=== PATIENT | male | born 2005 | race African-American/Black ===

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

== ENCOUNTER 2023-04-16 23:02 | Emergency (ER) | payer SELFPAY ==
[2023-04-16 23:09] VITALS: BP 121/82; PULSE 80; TEMP 98.5; BMI 25.8
[2023-04-16 23:34] LABS: HEMATOCRIT 40.7 % (35.4-49); HEMOGLOBIN 13.2 G/dL (11.7-16.9); MCH 24.4 pg (25.7-33.7); MCHC 32.4 g/dl (32.0-35.9); MEAN CELL VOLUME 75.4 fl (80-96); MEAN PLT VOLUME 8.6 fl (7.5-11.1); PLATELET COUNT 188.3 10^3/uL (134-434); RDW 15.3 % (11.9-15.9); WHITE BLOOD COUNT 6.5 10^3/uL (4.0-10.8)
[2023-04-16 23:46] LABS: ALBUMIN 4.6 g/dl (3.4-5.0); BILIRUBIN,TOTAL 0.4 mg/dl (0.2-1); CALCIUM 9.4 mg/dl (8.5-10.1); CREATININE 1.1 mg/dl (0.6-1.3); POTASSIUM 3.9 mmol/L (3.5-5.1); TOT PROT 6.9 g/dl (6.4-8.2)
[2023-04-16 23:56] VITALS: RESP 18
== END 2023-04-17 01:03 | disposition home or self-care (01) ==
LOC: FER 23:02
DX: R55 Syncope and collapse (principal); R11.0 Nausea; R61 Generalized hyperhidrosis
CPT/HCPCS: 36415; 80053; 82550; 82553; 84484; 85027; 93005; 99284-25

== ENCOUNTER 2023-06-24 17:16 | Emergency (ER) | payer OTHER ==
[2023-06-24 17:31] VITALS: BP 132/75; PULSE 69; RESP 15; TEMP 99.1; BMI 25.8
[2023-06-24] MEDS ORDERED: IBUPROFEN 600 MG TABLET (FP) PO ONE (17:42)
[2023-06-24] MEDS: IBUPROFEN 600 MG TABLET (FP) PO ONE (17:44)
== END 2023-06-24 18:40 | disposition home or self-care (01) ==
LOC: FER 17:16
DX: M25.561 Pain in right knee (principal); X50.1XXA Overexertion from prolonged static or awkward postures, initial encounter; Y93.67 Activity, basketball
CPT/HCPCS: 73562-TC-RT-FY; 99283-25

== ENCOUNTER 2023-08-13 04:16 | Emergency (ER) | payer OTHER ==
[2023-08-13 04:24] VITALS: RESP 18; BMI 24.3
[2023-08-13] MEDS ORDERED: ACETAMINOPHEN INJECTION 100 ML IVPB ONE (05:11)
[2023-08-13] MEDS: ACETAMINOPHEN 1000 MG/100 ML BAG IVPB ONE (05:22)
[2023-08-13] MEDS: SODIUM CHLORIDE 1,000 ML IV STA ×3 (05:22→07:30)
[2023-08-13 06:46] LABS: BASO % 0.4 % (0-2.0); CALCIUM 8.8 mg/dL (8.5-10.1); EOS % 0.7 % (0-4.5); HEMATOCRIT 40.6 % (35.4-49); HEMOGLOBIN 13.4 GM/dL (11.7-16.9); LYMPH % 10.8 % (8-40); MCH 24.7 pg (25.7-33.7); MEAN CELL VOLUME 74.7 fl (80-96); MEAN PLT VOLUME 8.6 fl (7.5-11.1); MONO % 19.7 % (3.8-10.2); NEUT % 68.4 % (42.8-82.8); PLATELET COUNT 178 10^3/uL (134-434); POTASSIUM 4.1 mmol/L (3.5-5.1); RBC 5.44 M/mm3 (4.00-5.60); RDW 13.5 % (11.9-15.9); WHITE BLOOD COUNT 2.5 K/mm3 (4.0-10.0)
[2023-08-13 06:47] LABS: BLOOD UREA NITROGEN 8.7 mg/dL (7-18)
[2023-08-13 06:50] LABS: CREATININE 1.4 mg/dL (0.55-1.3)
[2023-08-13 06:52] LABS: BILIRUBIN,TOTAL 0.6 mg/dL (0.2-1); TOT PROT 7.2 g/dl (6.4-8.2)
[2023-08-13] MEDS ORDERED: KETOROLAC TROMETHAMINE 15 MG/ML VIAL ONE (06:52)
[2023-08-13 06:55] VITALS: BP 107/57; PULSE 92; TEMP 100.7
[2023-08-13] MEDS: KETOROLAC TROMETHAMINE 30 MG/1 ML VIAL IVPUSH ONE (07:22)
== END 2023-08-13 11:21 | disposition home or self-care (01) ==
LOC: FER 04:16
PROC: 3E033NZ Introduction of Analgesics, Hypnotics, Sedatives into Peripheral Vein, Percutaneous Approach (ICD-10-PCS; principal; 2023-08-13)
PROC: 3E033GC Introduction of Other Therapeutic Substance into Peripheral Vein, Percutaneous Approach (ICD-10-PCS; 2023-08-13)
PROC: 3E0337Z Introduction of Electrolytic and Water Balance Substance into Peripheral Vein, Percutaneous Approach (ICD-10-PCS; 2023-08-13)
PROC: 3E0337Z Introduction of Electrolytic and Water Balance Substance into Peripheral Vein, Percutaneous Approach (ICD-10-PCS; 2023-08-13)
PROC: 3E0337Z Introduction of Electrolytic and Water Balance Substance into Peripheral Vein, Percutaneous Approach (ICD-10-PCS; 2023-08-13)
DX: G44.209 Tension-type headache, unspecified, not intractable (principal); Z20.822 Contact with and (suspected) exposure to COVID-19
CPT/HCPCS: 0241U-QW; 36415; 70450-TC; 70551-TC; 71045-TC-FY; 80053; 81003; 83605; 85025; 99285-25; J0131